=== PATIENT | female | born 1985 | race Caucasian/White ===

== ENCOUNTER → 2017-02-20 | Outpatient (CLI) | payer OTHER ==
--- NOTE | 2017-02-20 08:21 | US ---
EXAMINATION TYPE: US pelvic complete DATE OF EXAM: 02/20/2017 COMPARISON: NONE CLINICAL HISTORY: R10.9 Abdominal Pain. Intermittent left pelvic pain x 1 year, 0, patient on control TECHNIQUE: Transabdominal (TA) Date of LMP: November 2016 EXAM MEASUREMENTS: Uterus: 5.7 x 2.2 x 3.4 cm Endometrial Stripe: 0.3 cm Right Ovary: 2.4 x 1.8 x 2.6 cm Left Ovary: 2.5 x 1.5 x 1.3 cm Urinary bladder is sonolucent where visualized. Posterior wall is unremarkable. 1. Uterus: anteverted 2. Endometrium: appears wnl 3. Right Ovary: wnl 4. Left Ovary: wnl 5. Bilateral Adnexa: wnl 6. Posterior cul-de-sac: wnl IMPRESSION: 1. Normal pelvic ultrasound
--- NOTE | 2017-02-20 08:34 | US ---
EXAMINATION TYPE: US abdomen complete DATE OF EXAM: 02/20/2017 COMPARISON: NONE CLINICAL HISTORY: R10.9 Abdominal Pain. Intermittent left pelvic pain x 1 year, occasional nausea and diarrhea EXAM MEASUREMENTS: Liver Length: 13.8 cm Gallbladder Wall: 0.2 cm CBD: 0.2 cm Spleen: 9.8 cm Right Kidney: 10.3 x 4.3 x 4.9 cm Left Kidney: 8.9 x 5.5 x 4.4 cm Pancreas: visualized portions wnl, head and tail limited by overlying midline bowel gas Liver: wnl Gallbladder: wnl Evidence for sonographic Michaels's sign: no CBD: wnl Spleen: visualized portions wnl, limited by rib shadowing and overlying bowel gas Right Kidney: visualized portions wnl, inferior pole limited by overlying bowel gas Left Kidney: visualized portions wnl, limited by rib shadowing and overlying bowel gas Upper IVC: wnl Abd Aorta: wnl IMPRESSION: 1. Normal abdomen ultrasound as visualized. 2. There is limitation due to body habitus and bowel gas.
== END | disposition home or self-care (01) ==
LOC: RADUSWWP 07:32
PROVIDERS: ATTEND Family Medicine
DX: R10.9 Unspecified abdominal pain (principal); R93.9 Diagnostic imaging inconclusive due to excess body fat of patient
CPT/HCPCS: 76700; 76856

== ENCOUNTER 2018-06-10 09:51 | Emergency (ER) | payer OTHER ==
[2018-06-10 10:01] VITALS: TEMP 98.2
[2018-06-10] MEDS ORDERED: KETOROLAC 30 MG/ML 1 ML VIAL IVP STA (10:39)
[2018-06-10] MEDS ORDERED: diphenhydrAMINE 50 MG CAP PO STA (10:39)
[2018-06-10] MEDS ORDERED: SODIUM CHLORIDE 0.9% 500 ML 500 ML IV ONE (10:39)
[2018-06-10] MEDS ORDERED: ORPHENADRINE 30 MG/ML 2 ML VIAL IVP STA (10:39)
[2018-06-10] MEDS ORDERED: METOCLOPRAMIDE 5 MG/ML 2 ML VIAL IVP STA (10:39)
[2018-06-10] MEDS ORDERED: DEXAMETHASONE SOD PHOSPHATE 10 MG/ML 1 ML VIAL IV STA (10:40)
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
[2018-06-10 13:09] VITALS: BP 107/67; PULSE 85; RESP 16
== END 2018-06-10 13:10 | disposition home or self-care (01) ==
LOC: EC 09:51
DX: G43.909 Migraine, unspecified, not intractable, without status migrainosus (principal); M62.838 Other muscle spasm; Z98.890 Other specified postprocedural states; Z79.899 Other long term (current) drug therapy; Z88.1 Allergy status to other antibiotic agents; Z88.2 Allergy status to sulfonamides; Z88.5 Allergy status to narcotic agent; Z91.013 Allergy to seafood
CPT/HCPCS: 96361; 96374; 96375; 99283

== ENCOUNTER 2019-03-15 10:29 | Emergency (ER) | payer OTHER ==
[2019-03-15] MEDS ORDERED: METOCLOPRAMIDE 5 MG/ML 2 ML VIAL IVP STA (11:16)
[2019-03-15] MEDS ORDERED: SODIUM CHLORIDE 0.9% 1,000 ML IV STA (11:16)
[2019-03-15] MEDS ORDERED: KETOROLAC 30 MG/ML 1 ML VIAL IVP STA (11:16)
[2019-03-15] MEDS ORDERED: diphenhydrAMINE 50 MG/ML 1 ML VIAL IVP STA (11:16)
[2019-03-15] MEDS ORDERED: methylPREDNISolone SOD SUCCI 125 MG/2 ML VIAL IV STA (11:28)
[2019-03-15] MEDS ORDERED: ORPHENADRINE 30 MG/ML 2 ML VIAL IVP STA (11:28)
--- NOTE | 2019-03-15 12:00 | ED ---
Headache HPI - General Chief Complaint: Headache Stated Complaint: Migriane Time Seen by Provider: 03/15/19 10:40 Source: RN notes reviewed, old records reviewed Mode of arrival: ambulatory Limitations: no limitations - History of Present Illness Initial Comments: Patient is a 33-year-old female with a history of migraine-like headaches. Patient reports having migraine for the past 2 days. She reports yesterday she took her Imitrex and it resolved. She states that upon directed towards that she started about her migraine again. She complains of some tunnel vision associated with this. She states that that happens occasionally with her migraines. Patient states that she's had no fevers or chills or any other significant complaints. - Related Data Home Medications Medication Instructions Recorded Confirmed Baclofen 10 mg PO HS 07/19/15 03/15/19 Aspirin/Acetaminophen/Caffeine 1 - 2 tab PO DAILY PRN 06/10/18 03/15/19 [Excedrin Migraine Caplet] Blisovi Fe 24 ( Control) 1 tab PO DAILY 06/10/18 03/15/19 SUMAtriptan SUCCINATE [Imitrex] 50 mg PO ONCE PRN 06/10/18 03/15/19 Erenumab-Aooe [Aimovig 140 mg SQ Q30D 03/15/19 03/15/19 Autoinjector (2 Pack)] Previous Rx's Medication Instructions Recorded Ondansetron Odt [Zofran Odt] 4 mg PO Q6HR PRN #20 tab 07/19/15 Allergies Allergy/AdvReac Type Severity Reaction Status Date / Time morphine Allergy Dyspnea Verified 03/15/19 11:13 sulfamethoxazole Allergy Rash/Hives Verified 03/15/19 11:13 [From Bactrim] trimethoprim [From Bactrim] Allergy Rash/Hives Verified 03/15/19 11:13 codeine AdvReac Vomiting Verified 03/15/19 11:13 shellfish derived AdvReac Nausea & Verified 03/15/19 11:13 Vomiting & Diarrhea Review of Systems ROS Statement: Those systems with pertinent positive or pertinent negative responses have been documented in the HPI. ROS Other: All systems not noted in ROS Statement are negative. Past Medical History Additional Past Medical History / Comment(s): migraine History of Any Multi-Drug Resistant Organisms: None Reported Past Surgical History: No Surgical Hx Reported Additional Past Surgical History / Comment(s): nerve ablasion sep, 2016 c2-c4 Past Psychological History: No Psychological Hx Reported Smoking Status: Never smoker Past Alcohol Use History: None Reported Past Drug Use History: None Reported General Exam - General Exam Comments Initial Comments: This is a 33-year-old female. Alert and oriented. No significant distress. Limitations: no limitations General appearance: alert, in no apparent distress Head exam: Present: atraumatic, normocephalic, normal inspection Eye exam: Present: normal appearance, PERRL, EOMI. Absent: scleral icterus, conjunctival injection, periorbital swelling ENT exam: Present: normal exam, mucous membranes moist Neck exam: Present: normal inspection. Absent: tenderness, meningismus, lymphadenopathy Respiratory exam: Present: normal lung sounds bilaterally. Absent: respiratory distress, wheezes, rales, rhonchi, stridor Cardiovascular Exam: Present: regular rate, normal rhythm, normal heart sounds. Absent: systolic murmur, diastolic murmur, rubs, gallop, clicks GI/Abdominal exam: Present: soft, normal bowel sounds. Absent: distended, tenderness, guarding, rebound, rigid Extremities exam: Present: normal inspection, full ROM, normal capillary refill. Absent: tenderness, pedal edema, joint swelling, calf tenderness Back exam: Present: normal inspection Neurological exam: Present: alert, oriented X3, CN II-XII intact Psychiatric exam: Present: normal affect, normal mood Skin exam: Present: warm, dry, intact, normal color. Absent: rash Course Vital Signs 03/15/19 10:36 Temperature 98.9 F Pulse Rate 100 Respiratory 18 Rate Blood Pressure 116/76 O2 Sat by Pulse 99 Oximetry - Reevaluation(s) Reevaluation #1: 03/15/19 12:45 Patient at this time states that her headache is diminished at 2 out of 10. She feels well like to be discharged home. Medical Decision Making - Medical Decision Making Asians an 33-year-old female with migraine headache for the past 2 days. She has no neurological deficits otherwise appears well. She does follow with the neurology clinic. She states that she normally results. Cocktail. She states that her headache is typical for previous migraines. Patient was given fluids migraine cocktail. Reevaluation she states that her headache is a 2 out of 10 and feels well and the fluid like to be discharged home. I discussed that she follow up with her neurology clinic and return to this emergency department if any alarming signs symptoms occur. All questions were answered. Disposition Clinical Impression: Migraine Disposition: HOME SELF-CARE Condition: Good Instructions (If sedation given, give patient instructions): Acute Headache (ED) Additional Instructions: Please follow-up with your neurology clinic. Please follow up with family doctor if symptoms have not improved over the next two days. Please return to the emergency room if your symptoms increase or worsen or for any other concerns. Is patient prescribed a controlled substance at d/c from ED?: No Referrals: Khoi Galvan MD [Primary Care Provider] - 1-2 days Time of Disposition: 12:59
[2019-03-15 13:11] VITALS: BP 136/78; PULSE 80; RESP 16; TEMP 97.9
== END 2019-03-15 13:09 | disposition home or self-care (01) ==
LOC: EC 10:29
DX: G43.909 Migraine, unspecified, not intractable, without status migrainosus (principal); Z88.2 Allergy status to sulfonamides; Z88.5 Allergy status to narcotic agent; Z91.013 Allergy to seafood; Z79.899 Other long term (current) drug therapy
CPT/HCPCS: 96374; 96375 ×4; 96361; 99283; J1200; J2360; J2765; J2930; J1885

== ENCOUNTER 2020-06-26 06:37 | Inpatient (IN) | payer BC ==
[2020-06-26] MEDS ORDERED: LIDOCAINE 0.5% (PF) 5 MG/ML (50 ML SDV) SQ PRN (07:03)
[2020-06-26] MEDS ORDERED: CARBOPROST TROMETHAMINE 250 MCG/ML 1 ML AMP IM PRN (07:03)
[2020-06-26] MEDS ORDERED: METHYLERGONOVINE 0.2 MG/ML 1 ML AMP IM PRN (07:03)
[2020-06-26] MEDS ORDERED: TERBUTALINE 1 MG/ML VIAL SQ PRN (07:03)
[2020-06-26] MEDS ORDERED: OXYTOCIN 10 UNIT/ML 1 ML VIAL IM PRN (07:03)
[2020-06-26 07:09] LABS: Glucose,Whole Blood 82 mg/dL (75-99)
[2020-06-26] MEDS ORDERED: OXYTOCIN 30 UNITS/500 ML NS 30 UNIT in SALINE 1 500ML.BAG IV SCH (07:15)
[2020-06-26 07:19] LABS: Basophils % (A) 0 %; Eosinophils # (A) 0.1 k/uL (0-0.7); Eosinophils % (A) 1 %; HCT 40.6 % (34.0-46.0); HGB 13.8 gm/dL (11.4-16.0); Lymphocytes # (A) 2.3 k/uL (1.0-4.8); Lymphocytes % (A) 22 %; MCH 30.7 pg (25.0-35.0); MCV 90.3 fL (80.0-100.0); Mean Platelet Volume 8.6; Monocytes # (A) 0.6 k/uL (0-1.0); Monocytes % (A) 6 %; Neutrophils # (A) 7.4 k/uL (1.3-7.7); Neutrophils % (A) 70 %; Platelet Count 246 k/uL (150-450); RBC 4.49 m/uL (3.80-5.40); RDW 13.6 % (11.5-15.5); WBC 10.6 k/uL (3.8-10.6)
[2020-06-26] MEDS: LACTATED RINGERS 1,000 ML IV SCH ×2 (07:24→11:52)
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
[2020-06-26 15:13] LABS: Hemoglobin A1C 5.2 % (4.0-6.0)
[2020-06-26] MEDS ORDERED: CITRIC ACID-SODIUM CITRATE 15 ML CUP PO ONE (22:23)
[2020-06-26] MEDS ORDERED: LACTATED RINGERS 1,000 ML IV ONE (22:23)
[2020-06-26] MEDS ORDERED: ONDANSETRON 4 MG/2 ML VIAL IVP PRN (22:25)
[2020-06-26] MEDS ORDERED: ACETAMINOPHEN TAB 325 MG TAB PO PRN (22:25)
[2020-06-26] MEDS ORDERED: METOCLOPRAMIDE 5 MG/ML 2 ML VIAL IVP PRN (22:25)
[2020-06-26] MEDS ORDERED: diphenhydrAMINE 25 MG CAP PO PRN (22:25)
[2020-06-26] MEDS ORDERED: ZOLPIDEM 5 MG TAB PO PRN (22:25)
[2020-06-26] MEDS ORDERED: KETOROLAC 15 MG/ML 1 ML VIAL IVP PRN (22:25)
[2020-06-26] MEDS ORDERED: diphenhydrAMINE 50 MG CAP PO PRN (22:25)
[2020-06-26] MEDS ORDERED: NALOXONE 0.4 MG/ML 1 ML VIAL IV PRN (22:25)
[2020-06-26] MEDS ORDERED: HYDROcodone/APAP 7.5-325MG 1 EACH TAB PO PRN (22:25)
[2020-06-26] MEDS ORDERED: LANOLIN CREAM 5 GM TUBE TOPICAL PRN (22:25)
[2020-06-26] MEDS ORDERED: diphenhydrAMINE 50 MG/ML 1 ML VIAL IVP PRN ×2 (22:25)
[2020-06-26] MEDS ORDERED: SIMETHICONE 80 MG CHEWABLE PO PRN (22:25)
[2020-06-26] MEDS ORDERED: ACETAMINOPHEN IV (For NPO) 1,000 MG in EMPTY BAG 1 BAG IVPB ONE (22:30)
[2020-06-26] MEDS ORDERED: OXYTOCIN 20 UNITS/1000 ML NS 1,000 ML IV SCH (22:30)
[2020-06-26] MEDS ORDERED: LACTATED RINGERS 1,000 ML IV SCH (22:30)
--- NOTE | 2020-06-26 22:33 | P.OP ---
Date of Procedure: 06/26/20 Preoperative Diagnosis: #1. 40-0/7 weeks, induction #2. Gestational diabetes #3. Advanced maternal age #4. Arrest of dilation #5. Suspected malposition Postoperative Diagnosis: Same Procedure(s) Performed: #1. Primary low-transverse section Anesthesia: epidural Surgeon: Manuel Davis Internet Marketing Assistant #1: Sin Sher Estimated Blood Loss (ml): 400 IV fluids (ml): 900 Urine output (ml): 150 Pathology: none sent Condition: stable Disposition: floor Operative Findings: Preoperatively, the patient had been complete and 0 station for well over 2 hours and had had several attempts of pushing with no descent of the head below 0 station. She was felt to have a somewhat contracted pelvis and the fetus was felt to be in occiput transverse position. She was counseled regarding options and agreed to proceed to the operating room. She was delivered by primary low-transverse section of a viable 7 lbs. 7 oz. baby girl with Apgars of 8 at 1 minute and 9 at 5 minutes delivered in the right occiput transverse position. The placenta was delivered manually, intact, and grossly normal with a grossly normal three-vessel cord. The uterus, tubes, and ovaries were entirely normal to inspection. Description of Procedure: The patient was prepped and draped in usual fashion after epidural anesthesia was bolused by the anesthesiologist. A Pfannenstiel incision was made and extended into the abdominal cavity without difficulty. The bladder peritoneum was elevated, incised, and reflected distally. A 2 cm incision was made in the lower transverse segment of the uterus to enter the uterus at which time clear fluid was again noted. The incision was extended in both directions using the bandage scissors. The head was encountered deep within the pelvis on very tightly wedged in the right occiput transverse position. It was delivered up and through the incision where the nose and mouth were thoroughly suctioned. Remainder of the infant was delivered onto the field where the cord was doubly clamped, cut, and the infant passed for resuscitative measures with weight and Apgars as noted above. cord blood was collected. The placenta was delivered manually and intact as noted above. The uterus was exteriorized and the interior cavity of the uterus swept of any remaining placental or membranous fragments. The margins of the incision were grasped with Ybarra clamps and the incision closed in 2 layers. The first layer was a running locking stitch of 0 chromic catgut followed by a running imbricating stitch of 0 chromic catgut, each proceeding from margin to margin. Any small points of bleeding at that point were made hemostatic with the Bovie. The posterior cul-de-sac was suctioned using a guard and the uterine and ovarian findings were normal as noted above. The uterus was replaced within the abdominal cavity and the gutters swept of any remaining blood, fluid, or clot. Any further small bleeding areas were made hemostatic with the Bovie. Hemostasis appeared to be excellent. The parietal peritoneum was loosely reapproximated and layer of muscles examined and found to be hemostatic. The fascia was closed with 2 running stitches of 0 Vicryl proceeding from the lateral margins to the midpoint. Subcutaneous tissues were irrigated, made hemostatic with the Bovie and not closed as there Doppler was less than 2 cm. The skin was reapproximated with a running subcuticular stitch of 4-0 Vicryl from margin to margin followed by half-inch Steri-Strips placed with Mastisol. Estimated blood loss for the entire case was approximately 400 mL. There were no complications. All sponge, instrument, and needle counts were correct. The patient tolerated the procedure well and proceeded to the recovery room in stable condition. Both mother and are resting comfortably in recovery.
[2020-06-26 22:43] VITALS: RESP 16
[2020-06-26] MEDS ORDERED: HYDROmorphone PCA 10 MG/50 ML BAG IV PRN (23:00)
[2020-06-27 07:54] LABS: Basophils % (A) 0 %; Eosinophils % (A) 0 %; HCT 28.6 % (34.0-46.0); Lymphocytes # (A) 1.3 k/uL (1.0-4.8); Lymphocytes % (A) 7 %; MCH 31.6 pg (25.0-35.0); MCHC 34.7 g/dL (31.0-37.0); MCV 91.2 fL (80.0-100.0); Mean Platelet Volume 9.1; Monocytes # (A) 0.9 k/uL (0-1.0); Monocytes % (A) 5 %; Neutrophils # (A) 15.9 k/uL (1.3-7.7); Neutrophils % (A) 87 %; Platelet Count 188 k/uL (150-450); RBC 3.14 m/uL (3.80-5.40); RDW 13.7 % (11.5-15.5); WBC 18.3 k/uL (3.8-10.6)
[2020-06-27 08:02] LABS: HGB 9.9 gm/dL (11.4-16.0)
--- NOTE | 2020-06-27 08:40 | P.PNOBGPC ---
Subjective - Subjective Interval history: Has not yet ambulated. Patient reports: Reports appetite normal, Reports voiding normally, Reports pain well controlled [place]: doing well Objective - Vital Signs Latest vital signs: Vital Signs Temp Pulse Resp BP Pulse Ox 06/27/20 04:00 98.5 F 68 16 118/68 06/26/20 23:57 98.0 F 77 16 121/68 06/26/20 23:27 98.0 F 82 16 132/86 06/26/20 23:12 97.5 F L 82 16 128/87 06/26/20 22:57 97.5 F L 83 16 129/82 06/26/20 22:51 79 16 133/64 06/26/20 22:42 98.2 F 16 06/26/20 22:27 98.0 F 73 16 126/62 95 Intake and Output 06/26/20 06/27/20 06/27/20 22:59 06:59 14:59 Output Total 450 Balance -450 Output: Urine 450 - Exam Extremities: Present: normal Abdomen: Present: normal appearance, soft. Absent: distention, tenderness Incision: Present: normal, dry, intact Uterus: Present: normal, firm (The uterine fundus is tonic inappropriately tender just below the umbilicus.) - Labs Labs: Abnormal Lab Results - Last 24 Hours (Table) 06/27/20 Range/Units 06:57 WBC 18.3 H (3.8-10.6) k/uL RBC 3.14 L (3.80-5.40) m/uL Hgb 9.9 L D (11.4-16.0) gm/dL Hct 28.6 L (34.0-46.0) % Neutrophils # 15.9 H (1.3-7.7) k/uL Assessment and Plan (1) Gestational diabetes Current Visit: Yes Status: Acute Code(s): O24.419 - GESTATIONAL DIABETES MELLITUS IN , UNSP CONTROL SNOMED Code(s): 81303210 (2) Term Current Visit: Yes Status: Acute Code(s): Z34.90 - ENCNTR FOR SUPRVSN OF NORMAL , UNSP, UNSP TRIMESTER SNOMED Code(s): 69681956 (3) Arrest of descent, delivered, current hospitalization Current Visit: Yes Status: Acute Code(s): O62.1 - SECONDARY UTERINE INERTIA SNOMED Code(s): 78981040 (4) Status post section Current Visit: Yes Status: Acute Code(s): Z98.891 - HISTORY OF UTERINE SCAR FROM PREVIOUS SURGERY SNOMED Code(s): 696649588 Plan: Continue routine postoperative care. We will discontinue the PLASTIC BLOCK BOILER RELINER this morning in favor of oral pain medications. I strongly encouraged patient amulet in the hallways regularly. I anticipate discharge home tomorrow pending no complications.
[2020-06-27] MEDS: SENNOSIDES-DOCUSATE SODIUM 1 EACH TAB PO SCH ×2 (10:10→19:31)
[2020-06-27] MEDS: IBUPROFEN 600 MG TAB PO PRN ×3 (10:11→22:38)
[2020-06-27] MEDS: HYDROcodone/APAP 5-325MG 1 EACH TAB PO PRN (17:51)
[2020-06-28] MEDS: HYDROcodone/APAP 5-325MG 1 EACH TAB PO PRN ×2 (04:05→14:12)
[2020-06-28] MEDS: IBUPROFEN 600 MG TAB PO PRN ×2 (09:56→18:11)
[2020-06-28] MEDS: SENNOSIDES-DOCUSATE SODIUM 1 EACH TAB PO SCH (09:58)
--- NOTE | 2020-06-28 10:59 | P.DS ---
Providers Date of admission: 06/26/20 06:37 Expected date of discharge: 06/28/20 Attending physician: Manuel Davis Primary care physician: Stated None - Discharge Diagnosis(es) (1) Gestational diabetes Current Visit: Yes Status: Acute (2) Term Current Visit: Yes Status: Acute (3) Arrest of descent, delivered, current hospitalization Current Visit: Yes Status: Acute (4) Status post section Current Visit: Yes Status: Acute Hospital Course: The patient is a 35-year-old 1 para 0 admitted at 40-0/7 weeks by good dating parameters. She is admitted for induction of labor with all signs reassuring. Her has been uncomplicated though she did categorize as advanced maternal age and underwent negative testing for trisomy. She additionally was a gestational diabetic but had no abnormal blood sugars with excellent diet control. testing was reassuring throughout. On labor and delivery, she had Pitocin started followed by artificial rupture of membranes. She later had an epidural catheter placed for analgesia. She progressed through the course of labor to complete where she remained at complete and 0 station for well over 2 hours. Multiple attempts to attempt to push failed to bring the head below 0 station. She did the fetus was thought to be in occiput transverse presentation and the patient to have a somewhat contracted pelvic shape. As result, she agreed to proceed to the operating room where she was delivered by primary low-transverse section of a viable 7 lbs. 7 oz. baby girl with Apgars of 8 at 1 minute and 9 at 5 minutes. The findings that were suspected were confirmed with occiput transverse presentation and a very tight pelvis and into which the head was firmly wedged. Her postoperative course was unremarkable with vital signs being stable and her temperature was afebrile throughout. She was deemed stable for discharge on day #2/postoperative day #2 and was discharged home to follow-up in the office in 2 weeks for an incision check and 6 weeks routinely. Discharge instructions included calling for any significantly increased bleeding or foul-smelling lochia, significantly increased fever abdominal pain, perineal complaints, breast complaints, incisional complaints, or anything else that concerned her. She was additionally instructed to have nothing in the vagina for at least 6 weeks time to include intercourse and to abstain from any heavy lifting over the same period of time. She was lastly instructed to do no driving until off of all pain medications or 2 weeks' time, whichever came first. She understood her instructions and agrees follow up as noted above. Discharge medications included continued vitamins as well as [id number] analgesic pain medications. She was additionally provided with prescription for [place] 5/325 mg, 1-2 by mouth every 6 hours when necessary pain, #20 dispensed with no refills. Maternal blood type is O+ and rubella status is immune. Discharge hemoglobin and hematocrit were 9.9 and 28.6 respectively. As result, she was counseled to take iron sulfate once daily over the next month to rebuild her blood count. Procedures: #1. Pitocin induction #2. Artificial rupture of membranes #3. Epidural analgesia #4. Primary low-transverse section Patient Condition at Discharge: Stable Plan - Discharge Summary New Discharge Prescriptions: No Action Pnv No.95/Ferrous Fum/Folic AC [ Multivitamin Tablet] 1 each PO DAILY SUMAtriptan succinate [Imitrex] 50 mg PO ONCE Acetaminophen Tab [Tylenol Tab] 500 mg PO Q6H Discharge Medication List Pnv No.95/Ferrous Fum/Folic AC [ Multivitamin Tablet] 1 each PO DAILY 04/26/20 [History] Acetaminophen Tab [Tylenol Tab] 500 mg PO Q6H 06/26/20 [History] SUMAtriptan succinate [Imitrex] 50 mg PO ONCE 06/26/20 [History] Follow up Appointment(s)/Referral(s): Manuel Davis MD [STAFF PHYSICIAN] - 2 Weeks Discharge Disposition: HOME SELF-CARE
[2020-06-28 16:43] VITALS: BP 124/74; PULSE 84; TEMP 97.8
== END 2020-06-28 19:02 | disposition home or self-care (01) | DRG 788 ==
LOC: 4FBP 06:37
PROVIDERS: ADMIT Obstetrics & Gynecology; ATTEND Obstetrics & Gynecology
PROC: 3E033VJ Introduction of Other Hormone into Peripheral Vein, Percutaneous Approach (ICD-10-PCS; 2020-06-26)
PROC: 10907ZC Drainage of Amniotic Fluid, Therapeutic from Products of Conception, Via Natural or Artificial Opening (ICD-10-PCS; 2020-06-26)
PROC: 3E0R3BZ Introduction of Anesthetic Agent into Spinal Canal, Percutaneous Approach (ICD-10-PCS; 2020-06-26)
PROC: 10D00Z1 Extraction of Products of Conception, Low, Open Approach (ICD-10-PCS; principal; 2020-06-26 07:00)
DX: O24.420 Gestational diabetes mellitus in childbirth, diet controlled (principal); Z3A.40 40 weeks gestation of pregnancy; Z37.0 Single live birth; O62.1 Secondary uterine inertia; Z88.2 Allergy status to sulfonamides; Z88.5 Allergy status to narcotic agent; Z91.013 Allergy to seafood; Z79.899 Other long term (current) drug therapy
CPT/HCPCS: 83036; 85025; 86850; 86900; 86901

== ENCOUNTER → 2020-07-30 | Outpatient (CLI) | payer BC ==
--- NOTE | 2020-07-30 13:00 | CT ---
EXAMINATION TYPE: CT abdomen pelvis wo con DATE OF EXAM: 07/30/2020 HISTORY: Abdominal pain, s/p c section 5 weeks ago with recurrent pain and swelling. CT DLP: 639 mGycm. Automated Exposure Control for Dose Reduction was Utilized. TECHNIQUE: CT scan of the abdomen and pelvis is performed without oral or IV contrast. COMPARISON: NONE FINDINGS: Within the limitations of a non-contrast study, the following observations are made. LUNG BASES: No significant abnormality is appreciated. LIVER/GB: No significant abnormality is appreciated. PANCREAS: No significant abnormality is seen. SPLEEN: No significant abnormality is seen. ADRENALS: No significant abnormality is seen. KIDNEYS: No renal stones or hydronephrosis is present bilaterally. BOWEL: Suboptimal evaluation of bowel without enteric contrast. No suspicious small or large bowel di latation. GENITAL ORGANS: Anteverted uterus. LYMPH NODES: No greater than 1cm abdominal or pelvic lymph nodes are appreciated. OSSEOUS STRUCTURES: [id number] disc space narrowing with vacuum disc phenomenon L5-S1 level. OTHER: There is asymmetric right rectus muscular enlargement with an ovoid 4.4 x 3.1 cm low-density a mahad axial image 98 measuring 5.5 cm craniocaudal dimension coronal image 14. This has mild to moderat e surrounding fluid and fat stranding along the horizontal more superficial scar coronal im age 5. Some local mass effect is present. Small umbilical hernia containing fat and tiny mesenteric vessels. IMPRESSION: Focal small to moderate-size rectus sheath fluid collection as detailed above is nonspeci fic could reflect post procedure seroma, hematoma, or abscess. Some mild surrounding inflammatory raheem nge and local mass effect is present.
== END | disposition home or self-care (01) ==
LOC: RADCTMAIN 12:19
PROVIDERS: ATTEND Nurse Practitioner Adult Health
DX: R22.2 Localized swelling, mass and lump, trunk (principal); N73.8 Other specified female pelvic inflammatory diseases
CPT/HCPCS: 74176

== ENCOUNTER → 2022-06-28 | Outpatient (CLI) | payer BC ==
--- NOTE | 2022-06-28 11:41 | MR ---
EXAMINATION TYPE: MR brain wo/w con DATE OF EXAM: 06/28/2022 COMPARISON: 10/21/2013 HISTORY: Change in migraine, left eye sight loss, prior head injury TECHNIQUE: Multiplanar, multisequence images of the brain and brainstem is performed without and with IV contras t, utilizing 6 mL intravenous Gadavist . FINDINGS: On the T1-weighted sagittal images midline structures including the craniovertebral junction relation ships appear normal. The ventricles, basal cisterns and sulci over the convexities are within normal limits and there is n o mass effect or shift of midline structures. There is a small focal area of marked decreased signal intensity in the right parietal subcortical wh ite matter could indicate an area remote hemorrhage. Present on the prior study from 10/21/2013 and is stable. No abnormal signal intensity is seen in the remaining white matter. The posterior fossa including the brainstem, fourth ventricle and cerebellar pontine angles appear no rmal Based on diffusion-weighted imaging, there is no diffusion restriction or acute ischemic event. Following contrast administration, there is no pathological enhancement. The intraorbital contents appear normal and symmetric. Visualized paranasal sinuses and mastoid air c ells are well aerated. IMPRESSION: 1. No mass, mass effect, acute hemorrhage or pathological enhancement. 2. Stable small remote subcortical parenchymal bleed in the right parietal region. 3. No acute ischemic event.
== END | disposition home or self-care (01) ==
LOC: RADMRIMAIN 10:27
PROVIDERS: ATTEND Physician Assistant Medical
DX: G43.909 Migraine, unspecified, not intractable, without status migrainosus (principal); F07.81 Postconcussional syndrome; R23.3 Spontaneous ecchymoses
CPT/HCPCS: 70553; A9585

== ENCOUNTER → 2024-10-31 | Outpatient (CLI) | payer BC ==
--- NOTE | 2024-10-31 08:26 | MM ---
Reason for Exam: Screening (asymptomatic). Last mammogram was performed 2 year(s) and 1 month(s) ago. Patient History: Menarche at age 11. First Full-Term at age 35. Late child-bearing (after 30). Premenopausal. Currently using Hormonal Contraceptives, starting at age 19. Mother had breast cancer at or over age 50. Risk Values: Silvana 5 year model risk: 1.1%. NCI Lifetime model risk: 19.3%. Prior Study Comparison: 09/10/2022 Bilateral MG 3D screening mammo w/cad, [facility]. 09/12/2022 Right MG 3D work up w/cad RT, [facility]. Tissue Density: The breasts are extremely dense, which lowers the sensitivity of mammography. Findings: Analyzed By CAD. There is no suspicious group of microcalcifications or new suspicious mass in either breast. Overall Assessment: Negative, BI-RAD 1 Management: Screening Mammogram of both breasts in 1 year. . Patient should continue monthly self-breast exams. A clinical breast exam by your physician is recommended on an annual basis. This exam should not preclude additional follow-up of suspicious palpable abnormalities. Note on Silvana scores and lifetime risk: 1. A Silvana score greater than 3% is considered moderate risk. If this is the case, consider specialist referral to assess eligibility for a risk reducing agent. 2. If overall lifetime risk for the development of breast cancer is 20% or higher, the patient may qualify for future screening with alternating mammogram and breast MRI. [facility], , 10/31/2024 8:22 AM. Electronically signed and approved by: Darian Schmitz M.D. Radiologis
== END | disposition home or self-care (01) ==
LOC: RADMAMWWP 07:36
PROVIDERS: ATTEND Obstetrics & Gynecology
DX: Z12.31 Encounter for screening mammogram for malignant neoplasm of breast (principal); R92.343 Mammographic extreme density, bilateral breasts; Z80.3 Family history of malignant neoplasm of breast; Z79.3 Long term (current) use of hormonal contraceptives
CPT/HCPCS: 77063; 77067